=== PATIENT | male | born 1975 | race Two or more races ===

== ENCOUNTER 2024-12-22 05:47 | Inpatient (IN) | payer BC, OTHER ==
[~2024-12-22] VITALS: Ht 170.2 cm; Wt 114.8 kg
[2024-12-22] MEDS: ACETAMINOPHEN 500 MG TAB or CAP PO ONE (06:04)
--- NOTE | 2024-12-22 06:47 | ED.PDOC ---
History of Present Illness(SKN HPI Comments 49 y/o M, presents to the ED for CC of wound check. Patient states, that he has a small wound to his left foot between the 4th and 5th digits that is draining a yellow odorous fluid onset, Sunday (12/20/24). Patient endorses, that pain, swelling, and redness is now traveling upward his left extremity. Upon arrival to the ED, patient has a slight fever at 100.2 and is tachycardiac with a HR of 108 BPM. Patient denies any nausea, vomiting, chills, sweats, trauma, injury, or fall. No other associated symptoms, modifiers, recent injuries or sick contacts present at this time. Chief Complaint: Wound Check Time Seen by MD: 06:30 History of Present Illness: Nurses Notes, Medications, Allergies Allergies: Coded Allergies: NO KNOWN ALLERGIES (Unverified , 12/22/24) Home Meds Reported Medications Atorvastatin Calcium (ATORVASTATIN CALCIUM) 10 Mg Tab, 1 TAB PO DAILY 12/22/24 Enalapril Maleate (Enalapril Maleate) 2.5 Mg Tab, 1 TAB PO DAILY 12/22/24 Metformin Hydrochloride (Metformin Hcl) 1,000 Mg Tab, 1 TAB PO BID 12/22/24 Information Source: Patient Mode of Arrival: Ambulatory Severity: Moderate Timing: Days Duration: Since onset Prehospital treatment: None Location: Foot Mechanism: Spontaneous Onset Developed: Other Object: Unknown Condition of Object: None Retained Foreign Body: No Wound Type: Unknown Immunization Status of Animal: NA Tetanus: Unknown History of: None Associated Signs and Symptoms: None Past Medical History PAST MEDICAL HISTORY: Denies Surgical History: Denies all surgeries Family History Family History: Unknown Social History Smoker: Non-Smoker Alcohol: Denies ETOH Use Drugs: Denies Drug Use Lives In: Home Constitutional: denies: chills, diaphoresis, fatigue, fever, malaise, sweats, weakness, others EENTM: denies: blurred vision, double vision, ear bleeding, ear discharge, ear drainage, ear pain, ear ringing, eye pain, eye redness, hearing loss, mouth pain, mouth swelling, nasal discharge, nose bleeding, nose congestion, nose pain, photophobia, tearing, throat pain, throat swelling, voice changes, others Respiratory: denies: cough, hemoptysis, orthopnea, SOB at rest, shortness of breath, SOB with excertion, stridor, wheezing, others Cardiovascular: denies: chest pain, dizzy spells, diaphoresis, Dyspnea on exertion, edema, irregular heart beat, left arm pain, lightheadedness, palpitations, PND, syncope, others Gastrointestinal: denies: abdomen distended, abdominal pain, blood streaked bowels, constipated, diarrhea, dysphagia, difficulty swallowing, hematemesis, melena, nausea, poor appetite, poor fluid intake, rectal bleeding, rectal pain, vomiting, others Genitourinary: denies: burning, dysuria, flank pain, frequency, hematuria, incontinence, penile discharge, penile sore, pain, testicle pain, testicle swelling, urgency, others Neurological: denies: dizziness, fainting, headache, left sided numbness, left sided weakness, numbness, paresthesia, pre-existing deficit, right sided numbness, right sided weakness, seizure, speech problems, tingling, tremors, weakness, others Musculoskeletal: reports: others (swelling, pain, erythema to the left foot); denies: back pain, gout, joint pain, joint swelling, muscle pain, muscle stiffness, neck pain Integumetry: denies: bruises, change in color, change in hair/nails, dryness, laceration, lesions, lumps, rash, wounds, others Allergic/Immunocompromised: denies: Difficulty Healing, Frequent Infections, Hives, Itching, others Hematologic/Lymphatic: denies: anemia, blood clots, easy bleeding, easy bruising, swollen glands, others Endocrine: denies: excessive hunger, excessive sweating, excessive thirst, excessive urination, flushing, intolerance to cold, intolerance to heat, unexplained weight gain, unexplained weight loss, others Psychiatric: denies: anxiety, bipolar disorder, depression, hopeless, panic disorder, schizophrenia, sleepless, suicidal, others All Other Systems: Reviewed and Negative Physical Exam General Appearance: No Apparent Distress, Normal HEENT: Normal ENT Inspection, Pharynx Normal Neck: Full Range of Motion, Non-Tender, Normal, Normal Inspection Respiratory: Chest Non-Tender, Lungs Clear, No Accessory Muscle Use, No Respiratory Distress, Normal Breath Sounds Cardiovascular: No Edema, No Murmur, No Gallop, Normal Peripheral Pulses, Regular Rate/Rhythm Breast Exam: Deferred Gastrointestinal: No Organomegaly, Non Tender, No Pulsatile Mass, Normal Bowel Sounds, Soft Genitalia: Deferred Pelvic: Deferred Rectal: Deferred Extremities: No calf tenderness, Normal capillary refill, Normal inspection, Normal range of motion, Non-tender, No pedal edema Musculoskeletal : Location: Left Extremity Location: Foot Apperance: Swelling, Tenderness, Other (erythema, between 4th and 5th toe) Neurologic: Alert, 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 Was a procedure done?: No Differential Diagnosis (INTG) Differential Diagnosis: Cellulitis X-Ray, Labs, Meds, VS Vital Signs Date Time Temp Pulse Resp B/P (MAP) Pulse Ox O2 Delivery O2 Flow Rate FiO2 12/22/24 07:36 98.8 76 18 109/63 (78) 97 98.8 12/22/24 07:36 76 18 97 Room Air* 0 21 12/22/24 07:30 98.8 12/22/24 06:04 100.2 108 18 121/77 (92) 96 100.2 12/22/24 06:04 100.2 Lab Test 12/22/24 07:34 12/22/24 07:10 12/22/24 06:58 Range/Units Urine Color Yellow Yellow Urine Clarity Clear Clear Urine pH 6.0 5.0-9.0 Urine Specific [place] 1.023 1.001-1.035 Urine Protein Trace H Negative Urine Ketones Trace Negative Urine Blood Negative Negative /uL Urine Nitrite Negative Negative Urine Bilirubin Negative Negative Urine Urobilinogen Normal Negative mg/dL Urine Leukocyte Esterase Negative Negative /uL Urine RBC 1 0 - 3 /hpf Urine Microscopic WBC 3 0-3 /HPF Urine Squamous Epithelial Cells Few <5 /hpf Urine Bacteria Few H None Seen /hpf Urine Mucus Few None Seen Urine Glucose Normal Normal mg/dL White Blood Count 15.2 H 4.4-10.8 10^3/uL Red Blood Count 4.95 4.5-5.90 10^6/uL Hemoglobin 15.5 13.5-17.5 g/dL Hematocrit 44.3 41.0-53.0 % Mean Corpuscular Volume 89.4 80.0-100.0 fL Mean Corpuscular Hemoglobin 31.2 28.0-32.0 pg Mean Corpuscular Hemoglobin Concent 34.9 32.0-36.0 g/dL Red Cell Distribution Width 13.6 11.8-14.3 % Platelet Count 178 140-450 10^3/uL Mean Platelet Volume 8.1 6.9-10.8 fL Neutrophils (%) (Auto) 80.4 H 37.0-80.0 % Lymphocytes (%) (Auto) 12.5 10.0-50.0 % Monocytes (%) (Auto) 6.5 0.0-12.0 % Eosinophils (%) (Auto) 0.0 0.0-7.0 % Basophils (%) (Auto) 0.6 0.0-2.0 % Neutrophils # (Auto) 12.2 H 1.6-8.6 10 ^3/uL Lymphocytes # (Auto) 1.9 0.4-5.4 10 ^3/uL Monocytes # (Auto) 1.0 0-1.3 10 ^3/uL Eosinophils # (Auto) 0 0-0.8 10 ^3/uL Basophils # (Auto) 0.1 0-0.2 10 ^3/uL Nucleated Red Blood Cells 0.0 % Prothrombin Time 11.0 9.3-11.8 sec Prothrombin Time INR 1.04 0.9-1.15 Activated Partial Thromboplast Time 29.3 24.5-34.5 SEC Sodium Level 132 L 136-145 mmol/L Potassium Level 4.0 3.5-5.1 mmol/L Chloride Level 99 98-107 mmol/L Carbon Dioxide Level 23 20-31 mmol/L Anion Gap 10 5-15 Blood Urea Nitrogen 10 9-23 mg/dL Creatinine 0.88 0.700-1.30 mg/dL Glomerular Filtration Rate Calc 105 >90 mL/min BUN/Creatinine Ratio 11.4 10.0-20.0 Serum Glucose 160 H 74-106 mg/dL Hemoglobin A1c 6.5 H <5.7 % A1C Calcium Level 9.8 8.7-10.4 mg/dL Total Bilirubin 0.5 0.2-1.0 mg/dL Aspartate Amino Transferase (AST) 18 13-40 U/L Alanine Aminotransferase (ALT) 23 7-40 U/L Alkaline Phosphatase 64 46-116 U/L Total Protein 7.8 5.7-8.2 g/dL Albumin 5.0 H 3.2-4.8 g/dL Lactic Acid Level 0.8 0.4-2.0 mmol/L Microbiology Date/Time Source Procedure Growth Status 12/22/24 07:10 Blood Blood Culture - Preliminary NO GROWTH AFTER 48 HOURS OF INCUBATION. Resulted 12/22/24 06:58 Blood Blood Culture - Preliminary NO GROWTH AFTER 48 HOURS OF INCUBATION. Resulted [place] [id number] Ph: [phone] DIAGNOSTIC IMAGING Diagnostic Imaging Report : [id number] Signed PATIENT: GUILLERMINA PATEL ACCT: [id number] UNIT: [id number] : 1975 LOC: ER ROOM / BED: / AGE / SEX: 49 / M ADM STATUS: REG ER SERVICE 4 ORDERING PHYSICIAN: NANCY JALLOH MD PROCEDURE(s): CXRP - CHEST PORTABLE REASON: fever ORDER NUMBER(s): [id number], ACCESSION NUMBER(s): [id number] CHEST RADIOGRAPH Indication: fever Technique: Single frontal view of the chest was obtained Comparison: None FINDINGS: Lines and Tubes: None Lungs: No focal consolidation. Pleura: No effusion. No pneumothorax. Cardiomediastinal contours: Unremarkable Bones: No acute osseous abnormality. IMPRESSION: 1. No acute cardiopulmonary disease. ATED BY: ISHA CASH MD DICTATED DATE/TIME: 12/22/24721 SIGNED BY: ISHA CASH MD SIGNED DATE/TIME: 12/22/24721 CC: [place] [id number] Ph: [phone] DIAGNOSTIC IMAGING Diagnostic Imaging Report : [id number] Signed PATIENT: GUILLERMINA PATEL ACCT: [id number] UNIT: [id number] : 1975 LOC: ER ROOM / BED: / AGE / SEX: 49 / M ADM STATUS: REG ER SERVICE 4 ORDERING PHYSICIAN: NANCY JALLOH MD PROCEDURE(s): LFOOT - L FOOT 3 VIEW XRAY REASON: left foot wound ORDER NUMBER(s): [id number], ACCESSION NUMBER(s): [id number] EXAM: XY L FOOT 3 VIEW XRAY HISTORY: left foot wound COMPARISON: None TECHNIQUE: 2 views of the left foot were performed. FINDINGS: No acute fracture or dislocation are identified about the left foot. No cortical destruction. IMPRESSION: 1. No acute fracture or cortical destruction in the left foot. ATED BY: ISHA CASH MD DICTATED DATE/TIME: 12/22/24723 SIGNED BY: ISHA CASH MD SIGNED DATE/TIME: 12/22/24723 CC: Time of 1ST Reevaluation: 07:00 Reevaluation 1ST: Unchanged Patient Education/Counseling: Diagnosis, Treatment Family Education/Counseling: No Family Present SEPSIS Sepsis Screen Date sepsis recognized/suspect: Dec 22, 2024 Time Sepsis recognized/suspect: 0550 Recent Procedure: No On Antibiotic Therapy: No Respiratory Rate >20: No Heart Rate >90: Yes Temp<36 C (96.8 F) or >38.3 C: Yes SBP <90 or MAP <65 mmHG: No New Acute Mental Status Change: No Is the patient on CPAP, BIPAP,: No Physician Orders Chest Portable (12/22/24 06:25) Accucheck (12/22/24 06:25) Blood Culture (12/22/24 06:25) Cefepime 1gm/ 50ml (Maxipime 1gm/50ml) (12/22/24 14:00) Notify Md If Map <65 Or Bp<90 (12/22/24 06:25) If Map<65 Start Vasopressor (12/22/24 06:25) Sepsis Reassesment After Fluid (12/22/24 07:25) L Foot 3 View Xray (12/22/24 06:25) Vital Signs Date Time Temp Pulse Resp B/P (MAP) Pulse Ox O2 Delivery O2 Flow Rate FiO2 12/22/24 07:36 98.8 76 18 109/63 (78) 97 98.8 12/22/24 07:36 76 18 97 Room Air* 0 21 12/22/24 07:30 98.8 12/22/24 06:04 100.2 108 18 121/77 (92) 96 100.2 12/22/24 06:04 100.2 Laboratory Tests Test 12/22/24 06:58 12/22/24 07:10 Lactic Acid Level 0.8 mmol/L (0.4-2.0) White Blood Count 15.2 10^3/uL (4.4-10.8) H Departure 1 Departure Time of Disposition: 18:19 (Patient with a right lower extremity cellulitis. We will admit patient for further workup) Impression: Primary Impression: Cellulitis of right lower extremity Additional Impression: Generalized weakness Disposition: ADMITTED INPATIENT Admit to: Med Surg Condition: Serious Critical Care Note Critical Care Time?: No Stability Stability form required: No Heart Score Heart Score: Heart Score Response (Comments) Value History N/A 0 EKG N/A 0 Age N/A 0 Risk Factors N/A 0 Troponin N/A 0 Total 0 I personally scribed for NANCY JALLOH MD ([email or web address]) on 12/22/24 at 06:47. Chasity ctronically submitted by Natalie Johnson ([email or web address]). I personally scribed for NANCY JALLOH MD ([email or web address]) on 12/22/24 at 07:35. Electr onically submitted by Natalei Johnson ([email or web address]). I personally scribed for NANCY JALLOH MD ([email or web address]) on 12/22/24 at 07:35. Electronically submitted by Natalie Johnson ([email or web address]). I personally scribed for NANCY JALLOH MD ([email or web address]) on 12/22/24 at 07:36. Electronically submitted by Natalie Johnson ([email or web address]). NANCY JALLOH MD Dec 22, 2024 06:47
--- NOTE | 2024-12-22 07:25 | DVH ---
CHEST RADIOGRAPH Indication: fever Technique: Single frontal view of the chest was obtained Comparison: None FINDINGS: Lines and Tubes: None Lungs: No focal consolidation. Pleura: No effusion. No pneumothorax. Cardiomediastinal contours: Unremarkable Bones: No acute osseous abnormality. IMPRESSION: 1. No acute cardiopulmonary disease.
--- NOTE | 2024-12-22 07:27 | DVH ---
EXAM: XY L FOOT 3 VIEW XRAY HISTORY: left foot wound COMPARISON: None TECHNIQUE: 2 views of the left foot were performed. FINDINGS: No acute fracture or dislocation are identified about the left foot. No cortical destruction. IMPRESSION: 1. No acute fracture or cortical destruction in the left foot.
[2024-12-22 07:28] LABS: Hematocrit 44.3 % (41.0-53.0); Hemoglobin 15.5 g/dL (13.5-17.5); Mean Corpuscular Hemoglobin 31.2 pg (28.0-32.0); Mean Corpuscular Volume 89.4 fL (80.0-100.0); Nucleated Red Blood Cells % 0.0 %
[2024-12-22 07:36] VITALS: PULSE 76; RESP 18; O2SAT 97
[2024-12-22 07:38] LABS: INR 1.04 (0.9-1.15); Partial Thromboplastin Time 29.3 SEC (24.5-34.5); Prothrombin Time 11.0 sec (9.3-11.8)
[2024-12-22 07:43] LABS: Alanine Aminotransferase 23 U/L (7-40); Alkaline Phosphatase 64 U/L (46-116); Anion Gap 10 (5-15); BUN/Creatinine Ratio 11.4 (10.0-20.0); Blood Urea Nitrogen 10 mg/dL (9-23); Calcium 9.8 mg/dL (8.7-10.4); Carbon Dioxide 23 mmol/L (20-31); Chloride 99 mmol/L (98-107); Potassium 4.0 mmol/L (3.5-5.1); Total Protein 7.8 g/dL (5.7-8.2)
[2024-12-22 07:44] LABS: Bilirubin, Total 0.5 mg/dL (0.2-1.0)
[2024-12-22] MEDS: LACTATED RINGER'S 2,000 ML IV ONE (07:44)
[2024-12-22 07:46] LABS: Albumin 5.0 g/dL (3.2-4.8); Glucose 160 mg/dL (74-106); Sodium 132 mmol/L (136-145)
[2024-12-22] MEDS: VANCOMYCIN 1GM/200ML PM 200 ML IV ONE (07:46)
[2024-12-22 08:45] LABS: Urine Protein, UAD TRACE (Negative)
[2024-12-22] MEDS ORDERED: ONDANSETRON HCL 4 MG/2 ML VIAL IV PRN (09:45)
[2024-12-22] MEDS ORDERED: DOCUSATE SOD 100 MG CAP PO PRN (09:45)
[2024-12-22] MEDS ORDERED: ENAL1TAB42 PO (09:48)
[2024-12-22] MEDS ORDERED: METF-372 PO (09:48)
[2024-12-22] MEDS ORDERED: ATOR10TA52 PO (09:48)
[2024-12-22] MEDS ORDERED: DEXTROSE (50%) 50ML SYRG IV PRN (10:00)
[2024-12-22] MEDS ORDERED: VANCOMYCIN PER PHARMACY 0 MG IV SCH (10:00)
--- NOTE | 2024-12-22 10:11 | DVHHP2 ---
History of Present Illness Reason for Visit: Wound check History of Present Illness Jorge A Francois is a 49-year-old male with past medical history of hyperlipidemia, and diabetes, who came to the hospital due to a wound on his left foot. Patient states on Sunday he thought he was getting athlete's foot on his left foot between his 4th and 5th toe. He states he was doing a lot of walking on Sunday and by the end of the night his symptoms had worsened. He states his foot was swollen extending up his leg, it was painful, and warm. He states Sunday he started getting fevers, the swelling and pain was worsening, and he noticed the redness going up his leg. Today he has some drainage between his toes, there is swelling that travels up his leg with red streaking. Cardiovascular: hyperipidemia Endocrine: Diabetes Past Surgical History: None Family History: None Smoke: <1 pack per day ALCOHOL: rare Drugs: None Lives: with Family Domestic Violence: Neg Review of Systems Constitutional: Yes: Fever, Chills, Malaise; No: Sweats, Weakness, Other Eyes: No: Pain, Vision change, Conjunctivae inflammation, Eyelid inflammation, Other, Redness ENT: No: Ear pain, Ear discharge, Nose pain, Nose discharge, Nose congestion, Mouth pain, Mouth swelling, Throat pain, Throat swelling, Other Respiratory: No: Cough, Dry, Shortness of breath, SOB with excertion, Wheezing, Hemoptysis, Pleuritic Pain, Sputum, Wheezing, Other Cardiovascular: No: Chest Pain, Palpitations, Orthopnea, Paroxysmal Noc. Dyspnea, Edema, Lt Headedness, Other Gastrointestinal: No: Nausea, Vomiting, Abdominal Pain, Diarrhea, Constipation, Melena, Hematochezia, Other Genitourinary: No Dysuria, No Frequency, No Incontinence, No Hematuria, No Retention, No Other Musculoskeletal: No: other, neck pain, shoulder pain, arm pain, back pain, hand pain, leg pain, foot pain Skin: Other (wound between 4th and 5th toe. Swelling from foot extending up left leg with red streaking ); No: Rash, Lesions, Jaundice, Bruising Neurological: No: Weakness, Numbness, Incoordination, Change in speech, Confusion, Seizures, Other Allergies: Coded Allergies: NO KNOWN ALLERGIES (Unverified , 12/22/24) Medications Current Medications Medications Dose Ordered Sig/Charlene Route Start Time Stop Time Status Last Admin Dose Admin Cefepime HCl 50 ml @ 12.5 mls/hr Q8HR IV 12/22/24 14:00 Acetaminophen/ Hydrocodone Bitart 1 tab Q4HP PRN PO 12/22/24 09:45 UNV Ondansetron HCl 4 mg Q4HP PRN IV 12/22/24 09:45 UNV Docusate Sodium 100 mg BIDPRN PRN PO 12/22/24 09:45 UNV Acetaminophen 650 mg Q6HP PRN PO 12/22/24 09:45 UNV Vancomycin HCl 0 ml @ 0 mls/hr UD IV 12/22/24 10:00 UNV Clindamycin Phosphate 50 ml @ 50 mls/hr Q8HR IV 12/22/24 14:00 UNV Exam Vital Signs Vital Signs Date Time Temp Pulse Resp B/P (MAP) Pulse Ox O2 Delivery O2 Flow Rate FiO2 12/22/24 07:36 98.8 76 18 109/63 (78) 97 98.8 12/22/24 07:36 Room Air* 0 21 General Appearance: Alert, Oriented X3, Cooperative, mild distress HEENT: Atraumatic, PERRLA Respiratory: Clear to auscultation, Normal air movement Cardiovascular: Regular rate, Normal S1, Normal S2 Abdominal: Normal bowel sounds, Soft, No tenderness Extremities: No clubbing, No cyanosis, Normal pulses, Other (Left lower extremtiy edema) Skin: No significant lesion (wound between 4th and 5th toe. Swelling extending from foot up left leg with red streaking) Neuro: Normal gait, Normal speech, Strength at 5/5 X4 ext, Normal tone Psych/Mental Status: Mental status NL, Mood NL Labs/Xrays Labs Test 12/22/24 07:34 12/22/24 07:10 12/22/24 06:58 Range/Units Urine Color Yellow Yellow Urine Clarity Clear Clear Urine pH 6.0 5.0-9.0 Urine Specific [place] 1.023 1.001-1.035 Urine Protein Trace H Negative Urine Ketones Trace Negative Urine Blood Negative Negative /uL Urine Nitrite Negative Negative Urine Bilirubin Negative Negative Urine Urobilinogen Normal Negative mg/dL Urine Leukocyte Esterase Negative Negative /uL Urine RBC 1 0 - 3 /hpf Urine Microscopic WBC 3 0-3 /HPF Urine Squamous Epithelial Cells Few <5 /hpf Urine Bacteria Few H None Seen /hpf Urine Mucus Few None Seen Urine Glucose Normal Normal mg/dL White Blood Count 15.2 H 4.4-10.8 10^3/uL Red Blood Count 4.95 4.5-5.90 10^6/uL Hemoglobin 15.5 13.5-17.5 g/dL Hematocrit 44.3 41.0-53.0 % Mean Corpuscular Volume 89.4 80.0-100.0 fL Mean Corpuscular Hemoglobin 31.2 28.0-32.0 pg Mean Corpuscular Hemoglobin Concent 34.9 32.0-36.0 g/dL Red Cell Distribution Width 13.6 11.8-14.3 % Platelet Count 178 140-450 10^3/uL Mean Platelet Volume 8.1 6.9-10.8 fL Neutrophils (%) (Auto) 80.4 H 37.0-80.0 % Lymphocytes (%) (Auto) 12.5 10.0-50.0 % Monocytes (%) (Auto) 6.5 0.0-12.0 % Eosinophils (%) (Auto) 0.0 0.0-7.0 % Basophils (%) (Auto) 0.6 0.0-2.0 % Neutrophils # (Auto) 12.2 H 1.6-8.6 10 ^3/uL Lymphocytes # (Auto) 1.9 0.4-5.4 10 ^3/uL Monocytes # (Auto) 1.0 0-1.3 10 ^3/uL Eosinophils # (Auto) 0 0-0.8 10 ^3/uL Basophils # (Auto) 0.1 0-0.2 10 ^3/uL Nucleated Red Blood Cells 0.0 % Prothrombin Time 11.0 9.3-11.8 sec Prothrombin Time INR 1.04 0.9-1.15 Activated Partial Thromboplast Time 29.3 24.5-34.5 SEC Sodium Level 132 L 136-145 mmol/L Potassium Level 4.0 3.5-5.1 mmol/L Chloride Level 99 98-107 mmol/L Carbon Dioxide Level 23 20-31 mmol/L Anion Gap 10 5-15 Blood Urea Nitrogen 10 9-23 mg/dL Creatinine 0.88 0.700-1.30 mg/dL Glomerular Filtration Rate Calc 105 >90 mL/min BUN/Creatinine Ratio 11.4 10.0-20.0 Serum Glucose 160 H 74-106 mg/dL Calcium Level 9.8 8.7-10.4 mg/dL Total Bilirubin 0.5 0.2-1.0 mg/dL Aspartate Amino Transferase (AST) 18 13-40 U/L Alanine Aminotransferase (ALT) 23 7-40 U/L Alkaline Phosphatase 64 46-116 U/L Total Protein 7.8 5.7-8.2 g/dL Albumin 5.0 H 3.2-4.8 g/dL CHEST RADIOGRAPH FINDINGS: Lines and Tubes: None Lungs: No focal consolidation. Pleura: No effusion. No pneumothorax. Cardiomediastinal contours: Unremarkable Bones: No acute osseous abnormality. IMPRESSION: 1. No acute cardiopulmonary disease. EXAM: XY L FOOT 3 VIEW XRAY FINDINGS: No acute fracture or dislocation are identified about the left foot. No cortical destruction. IMPRESSION: 1. No acute fracture or cortical destruction in the left foot. SEPSIS Sepsis Screen Date sepsis recognized/suspect: Dec 22, 2024 Time Sepsis recognized/suspect: 738 Recent Procedure: No On Antibiotic Therapy: No Respiratory Rate >20: No Heart Rate >90: No Temp<36 C (96.8 F) or >38.3 C: No SBP <90 or MAP <65 mmHG: No New Acute Mental Status Change: No Is the patient on CPAP, BIPAP,: No Physician Orders Chest Portable (12/22/24 06:25) Accucheck (12/22/24 06:25) Blood Culture (12/22/24 06:25) Lactic Acid W/ Reflex Order (12/22/24 08:00) Cefepime 1gm/ 50ml (Maxipime 1gm/50ml) (12/22/24 14:00) Notify Md If Map <65 Or Bp<90 (12/22/24 06:25) If Map<65 Start Vasopressor (12/22/24 06:25) Sepsis Reassesment After Fluid (12/22/24 07:25) L Foot 3 View Xray (12/22/24 06:25) Admit (12/22/24 09:41) Code Status (12/22/24 09:41) 2 Gm Sodium Diet (12/22/24 Lunch) Hydrocodone-Acet 5/325mg Tab ([place] 5/32 (12/22/24 09:45) Ondansetron Hcl (Zofran) (12/22/24 09:45) Docusate Sodium Capsule (Colace Capsule) (12/22/24 09:45) Complete Blood Count (12/23/24 04:00) Comprehensive Metabolic Panel (12/23/24 04:00) Condition: Serious (12/22/24 09:41) Acetaminophen Tablet (Tylenol Tablet) (12/22/24 09:45) Vancomycin Per Pharmacy (12/22/24 10:00) Clindamycin 600mg Iv (Cleocin Iv) (12/22/24 14:00) Glucose Blood (Accu-Chek Comfort Curve T (12/22/24 11:30) Bedtime Insulin Scale (12/22/24 22:00) Moderate Insulin Ss (12/22/24 11:30) Dextrose 50% Syringe (12/22/24 10:00) Enalapril Tablet (Vasotec Tablet) (12/22/24 10:00) (Nf) Atorvastatin Calcium (12/22/24 10:00) Vital Signs Date Time Temp Pulse Resp B/P (MAP) Pulse Ox O2 Delivery O2 Flow Rate FiO2 12/22/24 07:36 98.8 76 18 109/63 (78) 97 98.8 12/22/24 07:36 76 18 97 Room Air* 0 21 12/22/24 07:30 98.8 12/22/24 06:04 100.2 108 18 121/77 (92) 96 100.2 12/22/24 06:04 100.2 Laboratory Tests Test 12/22/24 06:58 12/22/24 07:10 Lactic Acid Level Pending White Blood Count 15.2 10^3/uL (4.4-10.8) H Medications Medications Dose Ordered Sig/Charlene Route Start Time Stop Time Status Last Admin Dose Admin Acetaminophen 650 mg ONCE ONCE PO 12/22/24 06:00 12/22/24 06:01 DC 12/22/24 06:04 650 MG Lactated Ringer's 2,000 ml @ 2,000 mls/hr ONCE ONCE IV 12/22/24 06:30 12/22/24 07:29 DC 12/22/24 07:44 2,000 MLS/HR Vancomycin HCl 200 ml @ 200 mls/hr ONCE ONCE IV 12/22/24 06:30 12/22/24 07:29 DC 12/22/24 07:46 200 MLS/HR Assessment/Plan Assessment/Plan Assessment: Cellulitis of right lower extremity, Leukocytosis, Diabetes, Hyperlipidemia, Plan: Admit to Med-Surg, IV antibiotics, IV hydration, Wound culture, A1c, Home medications reconciled, Plan discussed with: Patient My Orders Orders - MILTON BEAL Procedure Category Date Status Time Admit ADMIT 12/22/24 Transmitted 09:41 Code Status CODE 12/22/24 Transmitted 09:41 2 Gm Sodium Diet DIET 12/22/24 Transmitted Lunch Hydrocodone-Acet PHA 12/22/24 Logged 5/325mg Tab ([place] 09:45 Ondansetron Hcl PHA 12/22/24 Logged (Zofran) 09:45 Docusate Sodium PHA 12/22/24 Logged Capsule (Colace 09:45 Complete Blood Count LAB 12/23/24 Verified 04:00 Comprehensive LAB 12/23/24 Verified Metabolic Panel 04:00 Condition: Serious ABIDA 12/22/24 In Process 09:41 Acetaminophen Tablet PHA 12/22/24 Logged (Tylenol Tablet) 09:45 Vancomycin Per PHA 12/22/24 Logged Pharmacy 10:00 Clindamycin 600mg Iv PHA 12/22/24 Logged (Cleocin Iv) 14:00 Glucose Blood PHA 12/22/24 Verified (Accu-Chek Comfort 11:30 Bedtime Insulin Scale PHA 12/22/24 Verified 22:00 Moderate Insulin Ss PHA 12/22/24 Verified 11:30 Dextrose 50% Syringe PHA 12/22/24 Verified 10:00 Enalapril Tablet PHA 12/22/24 Verified (Vasotec Tablet) 10:00 (Nf) Atorvastatin PHA 12/22/24 Verified Calcium 10:00 Date of Service: Dec 22, 2024 Billing Provider: MILTON BEAL Common Visit Codes: [id number] INP/OBS CARE (MOD) MILTON BEAL Dec 22, 2024 10:11
[2024-12-22 10:21] VITALS: BP 132/71; PULSE 86; RESP 18; TEMP 98.2; O2SAT 94
[2024-12-22] MEDS: HYDROcodone-ACET 5/325MG TAB PO PRN (10:50)
[2024-12-22] MEDS: ENALAPRIL MALEATE 2.5 MG TAB PO SCH (11:03)
[2024-12-22] MEDS: InsuLIN REG 1unit/0.01ml Soln (100units/ml) SC SCH ×2 (11:30→21:55)
[2024-12-22] MEDS: ACCU-CHEK COMFORT CURVE STRIP VI SCH (11:30)
[2024-12-22] MEDS: VANCOMYCIN 1GM/200ML PM 250 ML IV SCH (11:51)
[2024-12-22 13:02] VITALS: BP 113/67; PULSE 77; RESP 18; TEMP 98.7; O2SAT 96
[2024-12-22] MEDS: CLINDAMYCIN 600MG IV 50 ML IV SCH (14:27)
[2024-12-22] MEDS: CEFEPIME 1GM/ 50ML 50 ML IV SCH (15:33)
[2024-12-22 17:00] VITALS: BP 136/74; PULSE 86; RESP 18; TEMP 100.8; O2SAT 94
[2024-12-22] MEDS: ACETAMINOPHEN 325 MG TAB PO PRN (18:32)
[2024-12-22 20:00] VITALS: PULSE 81; RESP 20; O2SAT 99
[2024-12-22 21:00] VITALS: BP 106/68; PULSE 81; RESP 20; TEMP 99; O2SAT 94
[2024-12-22] MEDS: ATORVASTATIN 20 MG TAB PO SCH (21:49)
[2024-12-23] VITALS (8 sets, daily range): BP systolic 90–108; BP diastolic 48–78; PULSE 65–88; RESP 16–20; TEMP 97.4–100.2; O2SAT 94–97
[2024-12-23 07:45] LABS: Hematocrit 40.6 % (41.0-53.0); Hemoglobin 13.9 g/dL (13.5-17.5); Mean Corpuscular Hemoglobin 30.9 pg (28.0-32.0); Mean Corpuscular Volume 90.3 fL (80.0-100.0); Nucleated Red Blood Cells % 0.0 %
[2024-12-23 08:00] LABS: Alanine Aminotransferase 26 U/L (7-40); Alkaline Phosphatase 58 U/L (46-116); Anion Gap 11 (5-15); BUN/Creatinine Ratio 10.8 (10.0-20.0); Blood Urea Nitrogen 9 mg/dL (9-23); Calcium 9.1 mg/dL (8.7-10.4); Carbon Dioxide 24 mmol/L (20-31); Chloride 99 mmol/L (98-107); Potassium 4.1 mmol/L (3.5-5.1); Total Protein 6.5 g/dL (5.7-8.2)
[2024-12-23 08:01] LABS: Albumin 4.2 g/dL (3.2-4.8)
[2024-12-23 08:02] LABS: Bilirubin, Total 0.4 mg/dL (0.2-1.0)
[2024-12-23 08:05] LABS: Glucose 157 mg/dL (74-106); Sodium 134 mmol/L (136-145)
[2024-12-23] MEDS ORDERED: VANCOMYCIN 1.25GM/250ML 250 ML IV SCH (12:00)
--- NOTE | 2024-12-23 18:11 | DVHPN2 ---
Subjective Assuming the care of the patient from today onwards. This is a follow up on left lower extremity cellulitis currently on IV antibiotics. Changes from previous H/P or p: No Changes Eyes: No Pain, No Vision change, No Conjunctivae inflammation, No Eyelid inflammation, No Other, No Redness ENT: No Ear pain, No Ear discharge, No Nose pain, No Nose discharge, No Nose congestion, No Mouth pain, No Mouth swelling, No Throat pain, No Throat swelling, No Other Cardiovascular: No Chest Pain, No Palpitations, No Orthopnea, No Paroxysmal Noc. Dyspnea, No Edema, No Lt Headedness, No Other Respiratory: No Cough, No Dry, No Shortness of breath, No SOB with excertion, No Wheezing, No Hemoptysis, No Pleuritic Pain, No Sputum, No Other Gastrointestinal: No Nausea, No Vomiting, No Abdominal Pain, No Diarrhea, No Constipation, No Melena, No Hematochezia, No Other Genitourinary: No Dysuria, No Frequency, No Incontinence, No Hematuria, No Retention, No Other Musculoskeletal: No other, No neck pain, No shoulder pain, No arm pain, No back pain, No hand pain, No leg pain, No foot pain Skin: No Rash, No Lesions, No Jaundice, No Bruising; Other (wound between 4th and 5th toe. Swelling from foot extending up left leg with red streaking ) Objective Vitals Vital Signs Date Time Temp Pulse Resp B/P (MAP) Pulse Ox O2 Delivery O2 Flow Rate FiO2 12/23/24 17:00 97.5 65 17 108/75 (86) 96 97.5 12/23/24 08:00 Room Air* 0 N/A Nasal Cannula* Intake/Output Intake and Output 12/23/24 07:00 Intake Total 2825 ml Balance 2825 ml Intake Oral 500 ml IV Total 2325 ml # Voids 5 Exam HEENT pupils are reactive Neck is supple CV is S1-S2 regular rate and rhythm Respiratory are clear GI positive bowel sound Extremity no pedal edema [employer] no motor deficit Left lower extremity has some redness and inflammation in the lower part of the leg. Also there is a interdigital split wound between the left 4th and 5th toe. Medications Current Medications Medications Dose Ordered Sig/Charlene Route Start Time Stop Time Status Last Admin Dose Admin Cefepime HCl 50 ml @ 12.5 mls/hr Q8HR IV 12/22/24 14:00 12/23/24 15:25 12.5 MLS/HR Acetaminophen/ Hydrocodone Bitart 1 tab Q4HP PRN PO 12/22/24 09:45 12/23/24 15:35 1 TAB Ondansetron HCl 4 mg Q4HP PRN IV 12/22/24 09:45 Docusate Sodium 100 mg BIDPRN PRN PO 12/22/24 09:45 Acetaminophen 650 mg Q6HP PRN PO 12/22/24 09:45 12/22/24 18:32 650 MG Vancomycin HCl 0 ml @ 0 mls/hr UD IV 12/22/24 10:00 Clindamycin Phosphate 50 ml @ 50 mls/hr Q8HR IV 12/22/24 14:00 12/23/24 14:20 50 MLS/HR Diagnostic Test (Pha) 1 strip ACHS 12/22/24 11:30 12/23/24 17:00 1 STRIP Insulin Human Regular HS SC 12/22/24 22:00 12/22/24 21:55 2 UNITS Insulin Human Regular AC SC 12/22/24 11:30 12/23/24 17:53 2 UNITS Dextrose 50 ml UD PRN IV 12/22/24 10:00 Enalapril Maleate 2.5 mg DAILY PO 12/22/24 10:00 12/23/24 10:19 2.5 MG Atorvastatin Calcium 10 mg HS PO 12/22/24 22:00 12/22/24 21:49 10 MG Vancomycin HCl 250 ml @ 200 mls/hr Q8HR IV 12/23/24 12:00 UNV Vancomycin HCl 200 ml @ 200 mls/hr Q8H IV 12/23/24 12:00 12/23/24 12:25 200 MLS/HR Laboratory Results Laboratory Tests 12/23/24 06:33 Chemistry Test 12/23/24 06:33 Albumin 4.2 g/dL (3.2-4.8) Calcium Level 9.1 mg/dL (8.7-10.4) Total Protein 6.5 g/dL (5.7-8.2) LFT Test 12/23/24 06:33 Alanine Aminotransferase (ALT) 26 U/L (7-40) Alkaline Phosphatase 58 U/L (46-116) Aspartate Amino Transferase (AST) 20 U/L (13-40) Total Bilirubin 0.4 mg/dL (0.2-1.0) Urinalysis Test 12/22/24 07:34 Urine Color Yellow (Yellow) Urine Clarity Clear (Clear) Urine pH 6.0 (5.0-9.0) Urine Specific [place] 1.023 (1.001-1.035) Urine Protein Trace (Negative) H Urine Ketones Trace (Negative) Urine Blood Negative /uL (Negative) Urine Nitrite Negative (Negative) Urine Bilirubin Negative (Negative) Urine Urobilinogen Normal mg/dL (Negative) Urine Leukocyte Esterase Negative /uL (Negative) Urine RBC 1 /hpf (0 - 3) Urine Microscopic WBC 3 /HPF (0-3) Urine Squamous Epithelial Cells Few /hpf (<5) Urine Bacteria Few /hpf (None Seen) H Urine Mucus Few (None Seen) Urine Glucose Normal mg/dL (Normal) Microbiology Microbiology Date/Time Source Procedure Growth Status 12/22/24 13:25 Foot Gram Stain - Final Resulted 12/22/24 13:25 Foot Wound Culture - Preliminary Resulted 12/22/24 07:10 Blood Blood Culture - Preliminary NO GROWTH AFTER 24 HOURS OF INCUBATION. Resulted Assessment/Plan Assessment/Plan 49-year-old male with a known history of diabetes mellitus type 2, dyslipidemia who initially presented to the hospital with a left lower extremity redness and swelling found to have 1. Left lower extremity cellulitis 2. Diabetes mellitus type 2 3. Dyslipidemia 4. Morbid obesity classI -IV antibiotics, infectious-disease consultation Discharge plan. Plan discussed with: Patient My Orders Orders - HAYLEY CHÁVEZ MD Procedure Category Date Status Time * Infectious [place]- CONS 12/23/24 Transmitted Shad Alonso 16:07 Date of Service: Dec 23, 2024 Billing Provider: HAYLEY CHÁVEZ MD Common Visit Codes: [id number] INP/OBS CARE(MOD) HAYLEY CHÁVEZ MD Dec 23, 2024 18:11
[2024-12-24] VITALS (8 sets, daily range): BP systolic 96–120; BP diastolic 51–83; PULSE 56–63; RESP 18–20; TEMP 98–99.3; O2SAT 95–98
--- NOTE | 2024-12-24 15:12 | DVHPN2 ---
Subjective This is a follow up on left lower extremity cellulitis currently on IV antibiotics. Changes from previous H/P or p: No Changes Eyes: No Pain, No Vision change, No Conjunctivae inflammation, No Eyelid inflammation, No Other, No Redness ENT: No Ear pain, No Ear discharge, No Nose pain, No Nose discharge, No Nose congestion, No Mouth pain, No Mouth swelling, No Throat pain, No Throat swelling, No Other Cardiovascular: No Chest Pain, No Palpitations, No Orthopnea, No Paroxysmal Noc. Dyspnea, No Edema, No Lt Headedness, No Other Respiratory: No Cough, No Dry, No Shortness of breath, No SOB with excertion, No Wheezing, No Hemoptysis, No Pleuritic Pain, No Sputum, No Other Gastrointestinal: No Nausea, No Vomiting, No Abdominal Pain, No Diarrhea, No Constipation, No Melena, No Hematochezia, No Other Genitourinary: No Dysuria, No Frequency, No Incontinence, No Hematuria, No Retention, No Other Musculoskeletal: No other, No neck pain, No shoulder pain, No arm pain, No back pain, No hand pain, No leg pain, No foot pain Skin: No Rash, No Lesions, No Jaundice, No Bruising; Other (wound between 4th and 5th toe. Swelling from foot extending up left leg with red streaking ) Objective Vitals Vital Signs Date Time Temp Pulse Resp B/P (MAP) Pulse Ox O2 Delivery O2 Flow Rate FiO2 12/24/24 09:46 117/83 12/24/24 09:00 98.6 57 18 97 98.6 12/23/24 20:00 Room Air* 0 N/A Nasal Cannula* Intake/Output Intake and Output 12/24/24 07:00 Intake Total 1874 ml Balance 1874 ml Intake Oral 1150 ml IV Total 724 ml # Voids 7 Exam HEENT pupils are reactive Neck is supple CV is S1-S2 regular rate and rhythm Respiratory are clear GI positive bowel sound Extremity no pedal edema [employer] no motor deficit Left lower extremity has some redness and inflammation in the lower part of the leg. Also there is a interdigital split wound between the left 4th and 5th toe. Medications Current Medications Medications Dose Ordered Sig/Charlene Route Start Time Stop Time Status Last Admin Dose Admin Cefepime HCl 50 ml @ 12.5 mls/hr Q8HR IV 12/22/24 14:00 12/24/24 06:44 12.5 MLS/HR Acetaminophen/ Hydrocodone Bitart 1 tab Q4HP PRN PO 12/22/24 09:45 12/23/24 15:35 1 TAB Ondansetron HCl 4 mg Q4HP PRN IV 12/22/24 09:45 Docusate Sodium 100 mg BIDPRN PRN PO 12/22/24 09:45 Acetaminophen 650 mg Q6HP PRN PO 12/22/24 09:45 12/22/24 18:32 650 MG Vancomycin HCl 0 ml @ 0 mls/hr UD IV 12/22/24 10:00 Clindamycin Phosphate 50 ml @ 50 mls/hr Q8HR IV 12/22/24 14:00 12/24/24 15:10 50 MLS/HR Diagnostic Test (Pha) 1 strip ACHS 12/22/24 11:30 12/24/24 11:52 1 STRIP Insulin Human Regular HS SC 12/22/24 22:00 12/23/24 21:22 3 UNITS Insulin Human Regular AC SC 12/22/24 11:30 12/24/24 11:53 6 UNITS Dextrose 50 ml UD PRN IV 12/22/24 10:00 Enalapril Maleate 2.5 mg DAILY PO 12/22/24 10:00 12/24/24 09:46 2.5 MG Atorvastatin Calcium 10 mg HS PO 12/22/24 22:00 12/23/24 21:17 10 MG Vancomycin HCl 250 ml @ 200 mls/hr Q8HR IV 12/23/24 12:00 UNV Vancomycin HCl 200 ml @ 200 mls/hr Q8H IV 12/23/24 12:00 12/24/24 11:59 200 MLS/HR Laboratory Results Laboratory Tests 12/23/24 06:33 12/24/24 11:10 Urinalysis Test 12/22/24 07:34 Urine Color Yellow (Yellow) Urine Clarity Clear (Clear) Urine pH 6.0 (5.0-9.0) Urine Specific [place] 1.023 (1.001-1.035) Urine Protein Trace (Negative) H Urine Ketones Trace (Negative) Urine Blood Negative /uL (Negative) Urine Nitrite Negative (Negative) Urine Bilirubin Negative (Negative) Urine Urobilinogen Normal mg/dL (Negative) Urine Leukocyte Esterase Negative /uL (Negative) Urine RBC 1 /hpf (0 - 3) Urine Microscopic WBC 3 /HPF (0-3) Urine Squamous Epithelial Cells Few /hpf (<5) Urine Bacteria Few /hpf (None Seen) H Urine Mucus Few (None Seen) Urine Glucose Normal mg/dL (Normal) Microbiology Microbiology Date/Time Source Procedure Growth Status 12/22/24 13:25 Foot Gram Stain - Final Resulted 12/22/24 13:25 Foot Wound Culture - Preliminary Resulted 12/22/24 07:10 Blood Blood Culture - Preliminary NO GROWTH AFTER 48 HOURS OF INCUBATION. Resulted Assessment/Plan Assessment/Plan 49-year-old male with a known history of diabetes mellitus type 2, dyslipidemia who initially presented to the hospital with a left lower extremity redness and swelling found to have 1. Left lower extremity cellulitis 2. Diabetes mellitus type 2 3. Dyslipidemia 4. Morbid obesity classI -IV antibiotics, infectious-disease consultation Discharge plan. Plan discussed with: Patient My Orders Orders - HAYLEY CHÁVEZ MD Procedure Category Date Status Time * Infectious [place]- CONS 12/23/24 Transmitted Shad Alonso 16:07 Date of Service: Dec 24, 2024 Billing Provider: HAYLEY CHÁVEZ MD Common Visit Codes: [id number] INP/OBS CARE(MOD) HAYLEY CHÁVEZ MD Dec 24, 2024 15:12
[2024-12-24] MEDS: VANCOMYCIN 1.25GM/250ML 250 ML IV SCH (20:15)
[2024-12-25] VITALS (7 sets, daily range): BP systolic 101–110; BP diastolic 66–73; PULSE 51–59; RESP 18–19; TEMP 97.8–98.1; O2SAT 93–97
[2024-12-25] MEDS: CEFEPIME 1GM/ 50ML 50 ML IV SCH (02:03)
[2024-12-25] MEDS ORDERED: DOXY100C79 PO (17:14)
[2024-12-25] MEDS ORDERED: CEPH500C PO (17:14)
--- NOTE | 2024-12-25 17:15 | DVHDS2 ---
Discharge Summary Date of Admission Dec 22, 2024 at 09:41 Date of Discharge: Dec 25, 2024 Labs/Diagnostic Data: Laboratory Results Test 12/25/24 04:55 12/24/24 22:05 12/24/24 11:10 12/23/24 06:33 Creatinine 0.76 mg/dL (0.700-1.30) Glomerular Filtration Rate Calc 110 mL/min (>90) POC Glucose 166 mg/dl (70-106) Vancomycin Level Trough 8.8 ug/mL (5-10) White Blood Count 9.4 10^3/uL (4.4-10.8) Red Blood Count 4.49 10^6/uL (4.5-5.90) Hemoglobin 13.9 g/dL (13.5-17.5) Hematocrit 40.6 % (41.0-53.0) Mean Corpuscular Volume 90.3 fL (80.0-100.0) Mean Corpuscular Hemoglobin 30.9 pg (28.0-32.0) Mean Corpuscular Hemoglobin Concent 34.3 g/dL (32.0-36.0) Red Cell Distribution Width 13.6 % (11.8-14.3) Platelet Count 193 10^3/uL (140-450) Mean Platelet Volume 8.5 fL (6.9-10.8) Neutrophils (%) (Auto) 69.0 % (37.0-80.0) Lymphocytes (%) (Auto) 20.8 % (10.0-50.0) Monocytes (%) (Auto) 9.1 % (0.0-12.0) Eosinophils (%) (Auto) 0.4 % (0.0-7.0) Basophils (%) (Auto) 0.7 % (0.0-2.0) Neutrophils # (Auto) 6.5 10 ^3/uL (1.6-8.6) Lymphocytes # (Auto) 2.0 10 ^3/uL (0.4-5.4) Monocytes # (Auto) 0.9 10 ^3/uL (0-1.3) Eosinophils # (Auto) 0 10 ^3/uL (0-0.8) Basophils # (Auto) 0.1 10 ^3/uL (0-0.2) Nucleated Red Blood Cells 0.0 % Sodium Level 134 mmol/L (136-145) Potassium Level 4.1 mmol/L (3.5-5.1) Chloride Level 99 mmol/L (98-107) Carbon Dioxide Level 24 mmol/L (20-31) Anion Gap 11 (5-15) Blood Urea Nitrogen 9 mg/dL (9-23) BUN/Creatinine Ratio 10.8 (10.0-20.0) Serum Glucose 157 mg/dL (74-106) Calcium Level 9.1 mg/dL (8.7-10.4) Total Bilirubin 0.4 mg/dL (0.2-1.0) Aspartate Amino Transferase (AST) 20 U/L (13-40) Alanine Aminotransferase (ALT) 26 U/L (7-40) Alkaline Phosphatase 58 U/L (46-116) Total Protein 6.5 g/dL (5.7-8.2) Albumin 4.2 g/dL (3.2-4.8) Random Vancomycin Level 3.8 ug/mL (5-10) Test 12/22/24 07:34 12/22/24 07:10 12/22/24 06:58 Urine Color Yellow (Yellow) Urine Clarity Clear (Clear) Urine pH 6.0 (5.0-9.0) Urine Specific [place] 1.023 (1.001-1.035) Urine Protein Trace (Negative) Urine Ketones Trace (Negative) Urine Blood Negative /uL (Negative) Urine Nitrite Negative (Negative) Urine Bilirubin Negative (Negative) Urine Urobilinogen Normal mg/dL (Negative) Urine Leukocyte Esterase Negative /uL (Negative) Urine RBC 1 /hpf (0 - 3) Urine Microscopic WBC 3 /HPF (0-3) Urine Squamous Epithelial Cells Few /hpf (<5) Urine Bacteria Few /hpf (None Seen) Urine Mucus Few (None Seen) Urine Glucose Normal mg/dL (Normal) Prothrombin Time 11.0 sec (9.3-11.8) Prothrombin Time INR 1.04 (0.9-1.15) Activated Partial Thromboplast Time 29.3 SEC (24.5-34.5) Hemoglobin A1c 6.5 % A1C (<5.7) Lactic Acid Level 0.8 mmol/L (0.4-2.0) Other Laboratory Tests 12/25/24 04:55 12/23/24 06:33 Brief Hx & Hospital Course: 49-year-old male with a known history of diabetes mellitus type 2, dyslipidemia who initially presented to the hospital with a left lower extremity redness and swelling found to have left lower extremity cellulitis. Patient does have known history of diabetes mellitus type 2 dyslipidemia has been as morbid obesity classI. Patient's cellulitis improved patient was being discharged under stable condition on p.o. antibiotics. Please return to ER if cellulitis gets worse or fevers chills or any concern. Condition at Discharge: Stable Final Diagnosis/Problems List 49-year-old male with a known history of diabetes mellitus type 2, dyslipidemia who initially presented to the hospital with a left lower extremity redness and swelling found to have 1. Left lower extremity cellulitis 2. Diabetes mellitus type 2 3. Dyslipidemia 4. Morbid obesity classI Discharge Disposition: AMA SNF Discharge Will this Physician continue t: No Discharge Instruct/Medications Diet: Cardiac 2g Na,low cholest Activity: Light activity Follow Up/Referral: 1800 ADA diet Medications: As reconciled and prescribed. New Medications: Cephalexin Monohydrate (Cephalexin) 500 Mg Cap 1 CAP PO TID for 7 Days, #30 CAP Doxycycline (Monohydrate) (Doxycycline) 100 Mg Cap 100 MG PO BID, #14 CAP Continued Medications: Atorvastatin Calcium (Atorvastatin Calcium) 10 Mg Tab 1 TAB PO DAILY Enalapril Maleate (Enalapril Maleate) 2.5 Mg Tab 1 TAB PO DAILY Metformin Hydrochloride (Metformin Hcl) 1,000 Mg Tab 1 TAB PO BID Scheduled Atorvastatin Calcium (Atorvastatin Calcium), 1 TAB PO DAILY, (Reported) Cephalexin Monohydrate (Cephalexin), 1 CAP PO TID Doxycycline (Monohydrate) (Doxycycline), 100 MG PO BID Enalapril Maleate (Enalapril Maleate), 1 TAB PO DAILY, (Reported) Metformin Hydrochloride (Metformin Hcl), 1 TAB PO BID, (Reported) Discharge Statement: "Patient was advised to return to the ER or call 911 if any headaches, dizziness, shortness of breath, chest pain, abdominal pain, bleeding, fevers, or worsening of medical condition. Patient was counseled about treatment plan, medications, possible side effects, patientverbalized understanding. All questions were answered to the best of my ability. This discharge took greater then 30 minutes in planning, reviewing documentation, counseling the patient, and discussing with other team members." ASSESSMENT ASSESSMENT Assessment 49-year-old male with a known history of diabetes mellitus type 2, dyslipidemia who initially presented to the hospital with a left lower extremity redness and swelling found to have 1. Left lower extremity cellulitis 2. Diabetes mellitus type 2 3. Dyslipidemia 4. Morbid obesity classI Date of Service: Dec 25, 2024 Billing Provider: HAYLEY CHÁVEZ MD Common Visit Codes: [id number] DISCH DAY >30min HAYLEY CHÁVEZ MD Dec 25, 2024 17:15
--- NOTE | 2024-12-26 15:22 | DVHINCON2 ---
Date of service: Dec 25, 2024 Family History: Pneumonia G8 FATHER, Allergies: Coded Allergies: NO KNOWN ALLERGIES (Unverified , 12/22/24) Home Meds Active Scripts Doxycycline (Monohydrate) (Doxycycline) 100 Mg Cap, 100 MG PO BID, #14 CAP Prov:HAYLEY CHÁVEZ MD 12/25/24 Cephalexin Monohydrate (Cephalexin) 500 Mg Cap, 1 CAP PO TID for 7 Days, #30 CAP Prov:HAYLEY CHÁVEZ MD 12/25/24 Reported Medications Atorvastatin Calcium (ATORVASTATIN CALCIUM) 10 Mg Tab, 1 TAB PO DAILY 12/22/24 Enalapril Maleate (Enalapril Maleate) 2.5 Mg Tab, 1 TAB PO DAILY 12/22/24 Metformin Hydrochloride (Metformin Hcl) 1,000 Mg Tab, 1 TAB PO BID 12/22/24 Vital Signs Vital Signs Date Time Temp Pulse Resp B/P (MAP) Pulse Ox O2 Delivery O2 Flow Rate FiO2 12/25/24 17:05 97.9 55 19 106/66 (79) 93 97.9 12/25/24 08:00 Room Air* 0 N/A Nasal Cannula* Labs/Diagnostic Data Labs Test 12/25/24 11:40 12/25/24 04:55 12/24/24 11:10 12/23/24 06:33 Range/Units POC Glucose 153 H 70-106 mg/dl Creatinine 0.76 0.700-1.30 mg/dL Glomerular Filtration Rate Calc 110 >90 mL/min Vancomycin Level Trough 8.8 5-10 ug/mL White Blood Count 9.4 # 4.4-10.8 10^3/uL Red Blood Count 4.49 L 4.5-5.90 10^6/uL Hemoglobin 13.9 13.5-17.5 g/dL Hematocrit 40.6 L 41.0-53.0 % Mean Corpuscular Volume 90.3 80.0-100.0 fL Mean Corpuscular Hemoglobin 30.9 28.0-32.0 pg Mean Corpuscular Hemoglobin Concent 34.3 32.0-36.0 g/dL Red Cell Distribution Width 13.6 11.8-14.3 % Platelet Count 193 140-450 10^3/uL Mean Platelet Volume 8.5 6.9-10.8 fL Neutrophils (%) (Auto) 69.0 37.0-80.0 % Lymphocytes (%) (Auto) 20.8 10.0-50.0 % Monocytes (%) (Auto) 9.1 0.0-12.0 % Eosinophils (%) (Auto) 0.4 0.0-7.0 % Basophils (%) (Auto) 0.7 0.0-2.0 % Neutrophils # (Auto) 6.5 1.6-8.6 10 ^3/uL Lymphocytes # (Auto) 2.0 0.4-5.4 10 ^3/uL Monocytes # (Auto) 0.9 0-1.3 10 ^3/uL Eosinophils # (Auto) 0 0-0.8 10 ^3/uL Basophils # (Auto) 0.1 0-0.2 10 ^3/uL Nucleated Red Blood Cells 0.0 % Sodium Level 134 L 136-145 mmol/L Potassium Level 4.1 3.5-5.1 mmol/L Chloride Level 99 98-107 mmol/L Carbon Dioxide Level 24 20-31 mmol/L Anion Gap 11 5-15 Blood Urea Nitrogen 9 9-23 mg/dL BUN/Creatinine Ratio 10.8 10.0-20.0 Serum Glucose 157 H 74-106 mg/dL Calcium Level 9.1 8.7-10.4 mg/dL Total Bilirubin 0.4 0.2-1.0 mg/dL Aspartate Amino Transferase (AST) 20 13-40 U/L Alanine Aminotransferase (ALT) 26 7-40 U/L Alkaline Phosphatase 58 46-116 U/L Total Protein 6.5 5.7-8.2 g/dL Albumin 4.2 3.2-4.8 g/dL Random Vancomycin Level 3.8 L 5-10 ug/mL Test 12/22/24 07:34 12/22/24 07:10 12/22/24 06:58 Range/Units Urine Color Yellow Yellow Urine Clarity Clear Clear Urine pH 6.0 5.0-9.0 Urine Specific [facility] 1.023 1.001-1.035 Urine Protein Trace H Negative Urine Ketones Trace Negative Urine Blood Negative Negative /uL Urine Nitrite Negative Negative Urine Bilirubin Negative Negative Urine Urobilinogen Normal Negative mg/dL Urine Leukocyte Esterase Negative Negative /uL Urine RBC 1 0 - 3 /hpf Urine Microscopic WBC 3 0-3 /HPF Urine Squamous Epithelial Cells Few <5 /hpf Urine Bacteria Few H None Seen /hpf Urine Mucus Few None Seen Urine Glucose Normal Normal mg/dL Prothrombin Time 11.0 9.3-11.8 sec Prothrombin Time INR 1.04 0.9-1.15 Activated Partial Thromboplast Time 29.3 24.5-34.5 SEC Hemoglobin A1c 6.5 H <5.7 % A1C Lactic Acid Level 0.8 0.4-2.0 mmol/L Microbiology Date/Time Source Procedure Growth Status 12/22/24 13:25 Foot Gram Stain - Final Complete 12/22/24 13:25 Foot Wound Culture - Final Complete 12/22/24 07:10 Blood Blood Culture - Preliminary NO GROWTH AFTER 72 HOURS OF INCUBATION. Resulted Problems(with codes): (1) Cellulitis of right lower extremity (2) Generalized weakness Plan/Recommendation ASSESSMENT AND PLAN: ID Problem List: \-- Diabetic foot ulcer \-- Cellulitis, left foot \-- Hypertension \-- Hyperlipidemia \-- Diabetes mellitus Assessment: This is a 49 y.o. male with a past medical history of hypertension, hyperlipidemia, and diabetes mellitus, who presents with a diabetic foot ulcer between the fourth and fifth toes of the left foot. The patient initially thought it was athlete's foot, but the area has worsened over several weeks with new onset of swelling, erythema extending above the ankle in streaks, pain, and fevers. There is a laceration but no significant ulceration noted between the toes. Denies decreased sensation or trauma to the area. On admission, the patient was febrile, with vital signs demonstrating mild tachycardia, slightly low blood pressure, and stable oxygenation. Labs notable for leukocytosis (WBC 15.2), creatinine 0.88, sodium 132. Platelet count 178, hemoglobin 15.5. Imaging: Chest X-ray reveals no acute cardiopulmonary disease. Left foot X-ray shows no acute fracture or cortical destruction. Cultures: Preliminary wound culture positive for group A streptococcus (pale hemolytic group A strep) and coagulase-negative staphylococcus. The patient has shown clinical improvement on antibiotic therapy (clindamycin, vancomycin, cefepime) started in the emergency department. Plan: \-- Transition to oral doxycycline 100 mg PO BID and cephalexin (Keflex) 500 mg PO QID to complete a 14-day antibiotic course for group A strep cellulitis, if clinically appropriate. \-- Monitor for continued improvement. If there is failure to resolve cellulitis/leg wound at completion of therapy, follow up in Infectious Disease Clinic. \-- Coordinate care with primary care provider for ongoing diabetes management. HbA1c noted at 6.5 (moderately controlled). Patient counseled to keep blood sugars <180 mg/dL during infection/wound healing. \-- Blood cultures pending follow-up. \-- Continue supportive care. Isolation Precautions: Standard \*Assessment and plan was discussed with the patient as written above. \*Plan is subject to change pending incorporation of new incoming i nformation/diagnostics. Updates may be added as an addendum at the bottom (OR TOP) of this note. Thank you for consult. ID will continue to follow. Please contact Infectious Disease for any questions or concerns. Antonella Alonso M.D. [facility]: ? \ History: The patient's chart and medications were reviewed in detail and the patient was seen and examined. History obtained from: patient Juana Francois is a 49 y.o. male with a history of hypertension, hyperlipidemia, and diabetes mellitus who presents with a foot ulcer between the fourth and fifth toes. No significant ulceration observed, but there is a laceration in the area. Denies decreased sensation and trauma. Over the past weeks, has developed swelling, erythema extending above the ankle in streaks, pain, and fevers. No other significant complaints reported. Review of Systems: A complete 10 system review of systems was completed and negative except as noted in the HPI or here. ROS: -CONSTITUTIONAL: Reports fever. -HEENT: Not discussed. -RESPIRATORY: Not discussed. -CV: Not discussed. -GI: Not discussed. -: Not discussed. -MSK: Foot pain, swelling, and redness as above. -SKIN: Redness and streaking up left lower extremity. -NEUROLOGICAL: Denies decreased sensation. -PSYCHIATRIC: Not discussed. Past Medical History: Hypertension Hyperlipidemia Diabetes mellitus Past Surgical History: Not discussed. Home Medications: Not provided in transcript. Allergies: Not provided in transcript. Family History: Not provided in transcript. Social History: Not provided in transcript. Objective: Vital Signs on Arrival: Temp: 98.8 F, BP: 109/63, Pulse: 70, Resp: 18, SpO2: 97% on room air. Most Recent Vital Signs: Not provided in transcript. Admission Weight: Not provided in transcript. Physical Exam: General: NAD Neck: Supple. No masses. HEENT: PERRL. Normal lids and conjunctiva. Moist mucous membranes. Oropharynx without lesions, exudates or excessive erythema. Normal appearance of the external aspects of the nose and ears. Heart: Regular rhythm, normal rate. No murmur. No lower extremity edema. Lungs: Normal respiratory effort. Clear to auscultation bilaterally. No wheezes. No crackles. Abdomen: Soft. Non-tender. Non-distended. No masses or abdominal hernia. Msk: Left foot with swelling, erythema in streaks extending above the ankle, and laceration noted between fourth and fifth toes. No significant ulceration. No digital cyanosis. Normal strength and tone in all 4 limbs. Skin: Warm and dry, except for left foot swelling, erythema and streaking along lower extremity. Neuro: Alert. No facial droop or slurred speech. Extra-ocular movements intact. Sensation intact to soft touch in all 4 limbs. Psych: Appropriate mood. Full affect. Oriented to person, place, time, and situation. Lines: Not provided in transcript. Diagnostic Studies: Available diagnostic studies were reviewed personally. Significant relevant results and findings are outlined below or addressed in the Assessment and Plan above. Pertinent Imaging: XR Chest 2 Vw: IMPRESSION: No acute cardiopulmonary disease. XR Foot Left: IMPRESSION: No acute fracture or cortical destruction of the left foot. Laboratory Studies: Creatinine 0.88 Sodium 132 WBC 15.2 Platelets 178 Hemoglobin 15.5 Microbiology: Preliminary wound culture: Pale hemolytic group A streptococcus, coagulase- negative staphylococcus Plan discussed with: Patient ANTONELLA ALONSO MD Dec 26, 2024 15:22
== END 2024-12-25 17:37 | disposition home or self-care (01) | DRG 638 ==
LOC: ER 05:47 → OVERFLOW 09:41 → WEST WING 17:59
PROVIDERS: ADMIT Internal Medicine; ATTEND Internal Medicine
DX: E11.621 Type 2 diabetes mellitus with foot ulcer (principal); L03.115 Cellulitis of right lower limb; L97.528 Non-pressure chronic ulcer of other part of left foot with other specified severity; L03.116 Cellulitis of left lower limb; I10 Essential (primary) hypertension; E66.01 Morbid (severe) obesity due to excess calories; Z68.39 Body mass index [BMI] 39.0-39.9, adult; E78.5 Hyperlipidemia, unspecified
CPT/HCPCS: 36415; 71045; 73630; 80053; 80202; 81001; 82565; 82962; 83036; 83605; 85025; 85610; 85730; 87040; 87205; 96365; G0378; J1815; J3490